=== PATIENT | female | born 1970 | race Caucasian/White ===

== ENCOUNTER → 2017-03-20 | Outpatient (CLI) | payer BC ==
[~2017-03-20] MED LIST: ALLEGRA ALLERG180 MG PO; DOXYCYCLINE HYC50 MG PO; ENDOCET 5-3251 EACH PO; NEXIUM40 MG PO; TAMOXIFEN CITRA20 MG PO; TRANSDERM-SCO1 PATCH TD; TYLENOL EXTRA500 MG PO; XANAX0.5 MG PO; YAZ 28 TABLET1 EACH PO; ZOLOFT100 MG PO
== END | disposition home or self-care (01) ==
LOC: NUC 09:58
DX: I48.3 Typical atrial flutter (principal)
CPT/HCPCS: 78227; A9537; J2805